=== PATIENT | female | born 1985 | race African-American/Black ===

== ENCOUNTER 2018-12-10 17:26 | Observation (INO) | payer OTHER ==
[~2018-12-10] VITALS: Ht 167.6 cm; Wt 109.8 kg
[~2018-12-10 17:26] MED LIST: MACROBID
[2018-12-10] MEDS ORDERED: PREN1TAB78 MT (18:25)
[2018-12-10] MEDS ORDERED: [UNRECOGNIZED DRUG - CODE] MT (18:26)
== END 2018-12-10 18:40 | disposition home or self-care (01) ==
LOC: 8 EST LDRP 17:26 → INTOOBSV 17:26
PROVIDERS: ADMIT Obstetrics & Gynecology; ATTEND Obstetrics & Gynecology
DX: O62.9 Abnormality of forces of labor, unspecified (principal); O99.89 Other specified diseases and conditions complicating pregnancy, childbirth and the puerperium; M54.9 Dorsalgia, unspecified; Z3A.37 37 weeks gestation of pregnancy
CPT/HCPCS: 99281; G0378

== ENCOUNTER 2018-12-10 21:36 | Inpatient (IN) | payer OTHER ==
[~2018-12-10] VITALS: Ht 162.6 cm; Wt 94.8 kg
[~2018-12-10 21:36] MED LIST changes: +PREN1TAB78 MT; +[UNRECOGNIZED DRUG - CODE] MT
[2018-12-10] MEDS ORDERED: LACTATED RINGERS 1,000 ML IV SCH (21:59)
[2018-12-10] MEDS ORDERED: NALOXONE HCL 0.4 MG/ML 1ML VIAL IV PRN (22:00)
[2018-12-10] MEDS ORDERED: LIDOCAINE HCL 1% 20ML VIAL (Pyxis) INJ INFIL SCH (22:00)
[2018-12-10] MEDS ORDERED: MISOPROSTOL 100MCG TABLET VG SCH (22:00)
[2018-12-10] MEDS ORDERED: DIPHENHYDRAMINE 50MG/ML VIAL IM PRN (22:00)
[2018-12-10] MEDS ORDERED: METHYLERGONOVINE MALEATE 0.2 MG/ML IM PRN (22:00)
[2018-12-10] MEDS ORDERED: MISOPROSTOL 100MCG TABLET VG PRN (22:30)
[2018-12-10 22:38] LABS: BASOPHILS % 0.4 % (0.0-2.0); HEMATOCRIT. 36.1 % (36.0-48.0); HEMOGLOBIN. 11.9 g/dL (12.0-16.0); LYMPHOCYTES % 7.5 % (20.0-50.0); MEAN CORPUSCULAR HEMOGLOBIN 28.6 pg (28.0-32.0); MEAN CORPUSCULAR VOLUME 86.4 fL (81.0-99.0); MEAN PLATELET VOLUME 10.1 fl (7.4-10.4); MONOCYTES % 3.3 % (2.0-8.0); NEUTROPHILS % 88.8 % (40.0-76.0); PLATELET 286 x1000/uL (130-400); RED BLOOD CELL COUNT 4.17 mill/uL (4.2-5.4); RED CELL DISTRIBUTION WIDTH 13.3 % (11.6-14.6)
[2018-12-10 23:03] LABS: PARTIAL THROMBOPLASTIN TIME 27.3 sec (23.4-31.0); PROTHROMBIN TIME 9.9 sec (9.6-11.0)
[2018-12-10 23:19] LABS: HEPATITIS B SURFACE ANTIGEN NEGATIVE
[2018-12-10] MEDS ORDERED: FENTANYL CITRATE/PF 50MCG/ML 2ML VIAL ONE (23:25)
[2018-12-10] MEDS ORDERED: BUPIVACAINE HCL/PF 0.25% (2.5MG/ML) 10ML ONE (23:26)
[2018-12-10] MEDS ORDERED: ROPIVACAINE HCL/PF 0.2% (2MG/ML) EPI 200ML EPI ONE (23:45)
[2018-12-11] MEDS ORDERED: DEXT 5%/LR + PITOCIN 20UNITS/L 1,000 ML IV ONE (00:30)
[2018-12-11] MEDS ORDERED: BUTORPHANOL TARTRATE 2 MG/ML VIAL IV PRN (02:15)
[2018-12-11 02:47] LABS: CHLORIDE 107 mEq/L (98-107)
[2018-12-11] MEDS ORDERED: DEXT 5%/LR + PITOCIN 20UNITS/L 1,000 ML IV SCH (05:36)
[2018-12-11] MEDS ORDERED: GLYCERIN/WITCH HAZEL LEAF MEDICATED PAD TOP PRN (05:45)
[2018-12-11] MEDS ORDERED: OXYCODONE HCL/ACETAMINOPHEN 5/325MG TABLET PO PRN (05:45)
[2018-12-11] MEDS ORDERED: ACETAMINOPHEN WITH CODEINE 300/30MG TABLET PO PRN (05:45)
[2018-12-11] MEDS ORDERED: BENZOCAINE/LANOLIN/ALOE VERA SPRAY TOP PRN (05:45)
[2018-12-11] MEDS ORDERED: BISACODYL 10MG SUPP PR PRN (05:45)
[2018-12-11] MEDS ORDERED: LANOLIN OINT 0.25 GM TUBE TOP PRN (05:45)
[2018-12-11] MEDS: IBUPROFEN 400MG TABLET PO PRN ×2 (07:37→15:44)
[2018-12-11] MEDS: SIMETHICONE 80MG TABLET CHEW PO SCH ×4 (09:00→20:45)
[2018-12-11] MEDS: MAGNESIUM/ALUMINUM HYDROXIDE/SIMETHICONE 30ML UDC PO SCH ×4 (09:00→20:45)
[2018-12-11 09:07] LABS: CLARITY URINE CLEAR (CLEAR); COLOR URINE YELLOW (YELLOW); KETONES URINE 3+ (NEGATIVE); LEUKOCYTE ESTERASE URINE NEGATIVE (NEGATIVE); NITRITE URINE NEGATIVE (NEGATIVE); OCCULT BLOOD URINE 2+ (NEGATIVE); PROTEIN URINE 1+ (NEGATIVE); SPECIFIC GRAVITY URINE 1.013 (1.005-1.030); UROBILINOGEN URINE 0.2 E.U./dL (0.2-1.0)
[2018-12-11 09:15] LABS: METHADONE URINE SCREEN NEGATIVE (NEGATIVE)
[2018-12-11 09:16] LABS: *AMPHETAMINES SCREEN URINE NEGATIVE (NEGATIVE); *BARBITURATES SCREEN URINE NEGATIVE (NEGATIVE); *BENZODIAZEPINES SCREEN URINE NEGATIVE (NEGATIVE); *COCAINE SCREEN URINE NEGATIVE (NEGATIVE); CANNABINOID URINE SCREEN NEGATIVE (NEGATIVE); OPIATES URINE SCREEN NEGATIVE (NEGATIVE); PHENCYCLIDINE URINE SCREEN NEGATIVE (NEGATIVE)
[2018-12-11 09:30] VITALS: BP 118/75
[2018-12-11 10:15] VITALS: BP 122/71
[2018-12-11 14:44] VITALS: BP 116/77
[2018-12-11] MEDS: PRENATAL VIT/FE FUMARATE/FA TABLET PO SCH (15:44)
[2018-12-11 20:00] VITALS: BP 110/70
[2018-12-11] MEDS: DOCUSATE SODIUM 100MG CAPSULE PO SCH (20:44)
[2018-12-12] VITALS: BP 112/75
[2018-12-12] MEDS: IBUPROFEN 400MG TABLET PO PRN ×4 (01:53→20:53)
[2018-12-12 05:36] VITALS: BP 110/62
[2018-12-12 07:01] LABS: BASOPHILS % 0.7 % (0.0-2.0); EOSINOPHILS % 0.4 % (0.0-5.0); HEMATOCRIT. 34.3 % (36.0-48.0); HEMOGLOBIN. 11.5 g/dL (12.0-16.0); LYMPHOCYTES % 21.6 % (20.0-50.0); MEAN CORPUSCULAR VOLUME 86.5 fL (81.0-99.0); MEAN PLATELET VOLUME 9.6 fl (7.4-10.4); MONOCYTES % 8.2 % (2.0-8.0); NEUTROPHILS % 69.1 % (40.0-76.0); PLATELET 267 x1000/uL (130-400); RED BLOOD CELL COUNT 3.97 mill/uL (4.2-5.4); RED CELL DISTRIBUTION WIDTH 13.7 % (11.6-14.6)
[2018-12-12] MEDS: MAGNESIUM/ALUMINUM HYDROXIDE/SIMETHICONE 30ML UDC PO SCH ×4 (07:30→20:51)
[2018-12-12 08:00] VITALS: BP 117/72
[2018-12-12] MEDS: SIMETHICONE 80MG TABLET CHEW PO SCH ×4 (08:00→20:50)
[2018-12-12] MEDS: PRENATAL VIT/FE FUMARATE/FA TABLET PO SCH (09:00)
[2018-12-12 16:52] VITALS: BP 96/43
[2018-12-12 20:00] VITALS: BP 125/87
[2018-12-12] MEDS: DOCUSATE SODIUM 100MG CAPSULE PO SCH (20:51)
[2018-12-13] VITALS: BP 117/70
[2018-12-13] MEDS: MAGNESIUM/ALUMINUM HYDROXIDE/SIMETHICONE 30ML UDC PO SCH (07:30)
[2018-12-13] MEDS: SIMETHICONE 80MG TABLET CHEW PO SCH (08:00)
[2018-12-13 08:24] VITALS: BP 134/79
[2018-12-13 09:06] VITALS: BP 134/79
[2018-12-13] MEDS: IBUPROFEN 400MG TABLET PO PRN (09:06)
[2018-12-13] MEDS: PRENATAL VIT/FE FUMARATE/FA TABLET PO SCH (09:10)
== END 2018-12-13 12:55 | disposition home or self-care (01) | DRG 560 ==
LOC: 8 EST LDRP 21:36 → 8EST 12-11 08:30
PROVIDERS: ADMIT Obstetrics & Gynecology; ATTEND Obstetrics & Gynecology
PROC: 10D07Z6 Extraction of Products of Conception, Vacuum, Via Natural or Artificial Opening (ICD-10-PCS; principal; 2018-12-11)
PROC: 3E0R3BZ Introduction of Anesthetic Agent into Spinal Canal, Percutaneous Approach (ICD-10-PCS; 2018-12-11)
PROC: 00HU33Z Insertion of Infusion Device into Spinal Canal, Percutaneous Approach (ICD-10-PCS; 2018-12-11)
DX: O60.23X0 Term delivery with preterm labor, third trimester, not applicable or unspecified (principal); D62 Acute posthemorrhagic anemia; Z37.0 Single live birth; Z88.8 Allergy status to other drugs, medicaments and biological substances; Z88.2 Allergy status to sulfonamides; Z3A.37 37 weeks gestation of pregnancy; O90.81 Anemia of the puerperium
CPT/HCPCS: 36415; 80305; 84550; 85384; 86592; 86703; 86762; 86850; 86900; 87340; 99281; G0378; J0595; J2590; J2795; J3010; J3490